=== PATIENT | male | born 1975 | race Caucasian/White ===

== ENCOUNTER 2017-04-19 20:54 | Emergency (ER) | payer OTHER ==
[2017-04-19 21:29] VITALS: RESP 16; TEMP 98.6; O2SAT 98
--- NOTE | 2017-04-20 00:09 | ED PDOC ---
HPI: Back Time Seen by Provider: 04/19/17 23:43 Chief Complaint (Nursing): Back Pain Chief Complaint (Provider): back pain History Per: Patient History/Exam Limitations: no limitations Onset/Duration Of Symptoms: Hrs Current Symptoms Are (Timing): Still Present Quality Of Discomfort: "Pain" Exacerbating Factor(s): Turning, Movement Additional History Per: Patient Additional Complaint(s): 41 y/o male presents with left lower back pain x 1 day. Patient states he woke up with pain, which is worsened by movement. Denies known injury/heavy lifting , fever, nausea/vomiting, abdominal pain, dysuria, hematuria, bowel/bladder incontinence, numbness/weakness lower extremities. Two advil tablets taken earlier this afternoon with some relief. Past Medical History Reviewed: Historical Data, Nursing Documentation, Vital Signs Vital Signs: Last Vital Signs Temp 98.6 F 04/19/17 21:26 Pulse 90 04/19/17 21:26 Resp 16 04/19/17 21:26 BP 164/80 H 04/19/17 21:26 Pulse Ox 98 04/19/17 21:26 - Medical History PMH: No Chronic Diseases - Surgical History Surgical History: No Surg Hx - Family History Family History: States: Unknown Family Hx - Home Medications Home Medications: Ambulatory Orders Medication Instructions Recorded Ibuprofen [Motrin] 600 mg PO Q8 PRN #6 tab 10/16/14 Penicillin V Potassium [Pen-Vee K] 500 mg PO QID 7 Days tab 10/16/14 oxyCODONE/Acetaminophen [Percocet 1 ea PO BID PRN #8 tab 10/16/14 5/325 mg Tab] Cyclobenzaprine [Cyclobenzaprine 10 mg PO BID PRN #14 tab 04/20/17 HCl] Naproxen [Naprosyn] 500 mg PO Q12 PRN #20 tablet 04/20/17 - Allergies Allergies/Adverse Reactions: Allergies Allergy/AdvReac Type Severity Reaction Status Date / Time No Known Allergies Allergy Verified 04/19/17 21:24 Review of Systems ROS Statement: Except As Marked, All Systems Reviewed And Found Negative Musculoskeletal: Positive for: Back Pain Physical Exam - Reviewed Nursing Documentation Reviewed: Yes Vital Signs Reviewed: Yes - Physical Exam Appears: Positive for: Well, Non-toxic, No Acute Distress Head Exam: Positive for: ATRAUMATIC, NORMAL INSPECTION, NORMOCEPHALIC Skin: Positive for: Normal Color Eye Exam: Positive for: Normal appearance ENT: Positive for: Normal ENT Inspection Cardiovascular/Chest: Positive for: Regular Rate, Rhythm Respiratory: Positive for: Normal Breath Sounds Gastrointestinal/Abdominal: Positive for: Normal Exam Back: Positive for: Normal Inspection, Muscle Spasm (left lspine paraspinal tenderness). Negative for: L CVA Tenderness, R CVA Tenderness, Vertebral Tenderness, Decreased ROM Extremity: Positive for: Normal ROM Neurologic/Psych: Positive for: Alert, Oriented - Laboratory Results Urine dip results: Negative for: Leukocyte Esterase, Blood, Nitrate, Ketones - ECG O2 Sat by Pulse Oximetry: 98 - Progress ED Course And Treament: Toradol IM, flexeril PO On re-eval, patient states pain improved. Patient educated on findings, discharged with rx Naproxen, Flexeril. Advised warm compresses Follow up PMD 2-3 days. Return precautions given. Disposition - Clinical Impression Clinical Impression: Low back pain - Patient ED Disposition Is Patient to be Admitted: No Counseled Patient/Family Regarding: Studies Performed, Diagnosis, Need For Followup - Disposition Disposition: Routine/Home Disposition Time: 02:22 Condition: IMPROVED Prescriptions: Cyclobenzaprine [Cyclobenzaprine HCl] 10 mg PO BID PRN #14 tab PRN Reason: Muscle Spasm Naproxen [Naprosyn] 500 mg PO Q12 PRN #20 tablet PRN Reason: Pain, Moderate (4-7) Instructions: Acute Low Back Pain (ED) Forms: [facility] (Portuguese)
[2017-04-20 02:50] VITALS: BP 149/86; PULSE 86
== END 2017-04-20 02:51 | disposition home or self-care (01) ==
LOC: H.ER 20:54
DX: M54.5 Low back pain (principal)
CPT/HCPCS: 96372; 99282; J1885